=== PATIENT | female | born 1990 | race Hispanic/Latino ===

== ENCOUNTER 2020-10-13 04:08 | Inpatient (IN) | payer MEDICAID, OTHER, SELFPAY ==
[2020-10-13] MEDS ORDERED: Carboprost 250 MCG/ML AMP IM PRN (04:57)
[2020-10-13] MEDS ORDERED: NS / Oxytocin 40 units/1000ml 1,000 ML IV PRN (04:57)
[2020-10-13] MEDS ORDERED: Methylergonovine 0.2 MG/ML VIAL IM PRN (04:57)
[2020-10-13] MEDS ORDERED: Ibuprofen 800 MG TAB PO PRN (04:57)
[2020-10-13] MEDS ORDERED: Misoprostol 200 MCG TAB PR PRN (04:57)
[2020-10-13] MEDS ORDERED: Lidocaine 1% (PF) 30 ML VIAL SC PRN (04:57)
[2020-10-13] MEDS ORDERED: Promethazine HCl 25 MG/ML VIAL IM PRN (04:59)
[2020-10-13] MEDS ORDERED: hydrALAZINE 20 MG/ML VIAL SLOW IVP PRN ×2 (04:59→07:11)
[2020-10-13] MEDS ORDERED: Ondansetron PF 4 MG/2 ML Vial IVP PRN (04:59)
[2020-10-13] MEDS ORDERED: Lactated Ringer's 1,000 ML IV SCH (05:00)
--- NOTE | 2020-10-13 05:00 | PDOC.FPROB ---
FMR OB H&P: HPI - History of Present Illness Chief Complaint: contractions Indentification: 30 yo @ 39.0 wks by 9.0 wk sono History of Present Illness: 30 yo @ 39.0 wks by 9.0 wk sono presents for contractions that started this morning at 0315. Contractions are painful. Denies LOF/VB/VD. Patient reports she was dilated to 6 cm 2 days ago at [facility]. Endorses good movement. Denies any complications during this . GBS negative. No additional complaints. Denies PMHx asthma, HTN. Primary Care Physician: Cheri Rocha @ [facility] FMR OB H&P: Current - Care : 4 Para: [id number] Gestational age: 39.0 Due date: 10/20/2020 Dating Criteria: LMP c/w 9.0 wk sono Course/Complications: TSH 3.5, TPO Ab neg S<D, last EFW 35.6% on 09/12 @ 34.4 weeks - OB Labs Blood type: O RH: positive Antibody Screen: negative HIV: negative RPR: negative HepBsAg: negative Rubella: immune Quad screen: negative Gonorrhea: negative Chlamydia: negative Pap Smear: NILM 02/2020 3 hour GTT: 2 HR: 74/127/130 GBS: negative FMR OB H&P: History - Past Medical History PMH: denies any PMHx - OB History OB History: 3 past SVDs: hx of precipitous deliveries in past pregnancies; hx 2nd deg l aceration in past delivery. - [employer] History [employer] History: pap NILM 02/2020, denies hx STDs - Surgical History Sx History: Denies past surgeries. - Social History Social History: denies etoh/tobacco/drug use - Family History Family History: denies family hx FMR OB H&P: Medications - Current Home Medications: Medication Instructions Recorded Confirmed Type Vit#42/FA Cmb#6 [Prena1 1 tablet PO DAILY 07/12/13 10/13/20 History Chew Tablet] Ibuprofen [Motrin] 800 mg PO Q8HR PRN #30 tab 04/04/17 10/13/20 Rx Allergies/Adverse Reactions: Allergies Allergy/AdvReac Type Severity Reaction Status Date / Time No Known Allergies Allergy Verified 07/12/13 02:20 FMR OB H&P: ROS - Review of Systems General: denies: fever/chills, fatigue Eyes: denies: vision changes ENT: denies: nasal congestion, rhinorrhea, sore throat Cardiovascular: denies: chest pain, palpitation, edema Respiratory: denies: cough, congestion, shortness of breath Gastrointestinal: denies: abdominal pain, nausea, vomiting, diarrhea, constipation Genitourinary (Female): reports: contractions. denies: dysuria, hematuria, poly uria, vaginal discharge, vaginal pain, vaginal bleeding Musculoskeletal: denies: pain Neurologic: denies: numbness, weakness Integumentary: denies: rash Endocrine: denies: polyuria Psychological: denies: depression, anxiety FMR OB H&P: Vital Signs - Heart Tones Baseline: 135 Variability: moderate Acceleration: present Deceleration: absent Category: category 1 [place] contractions every: q5-10 FMR OB H&P: Physical Exam - Physical Exam General: NAD, awake, alert and oriented HEENT: normocephalic and atraumatic, MMM, conjunctiva clear, no scleral icterus, grossly normal vision, grossly normal hearing Neck: supple, no LAD Heart: RRR, normal S1/S2, no murmurs/rubs/gallops, pulses present, no edema General: CTAB, no respiratory distress, no rales/rhonchi, no wheezing Abdomen: soft, gravid, non-tender Musculoskeletal: pulses present Neurological: sensation to pain,touch and proprioception grossly normal, DTR +1, no clonus Skin: no rash, good tugor Lymphatic: no unusual bruising or bleeding Psychiatric: intact recent and remote memory, good judgement and insight, normal mood and affect - Pelvic Exam Vulva: no masses, no lesions, no discharge SVE: Membranes: intact Presentation: vertex FMR OB H&P: Results - Imaging Imaging: cephalic presentation on bedside sono FMR OB H&P: A/P Discussion: Date/Time: 10/13/20 0500 sIUP, active labor - at 39.0 wks by LMP c/w 9.0 wk sono - uncomplicated course - GBS negative - cephalic presentation on sono - SVE and intact on presentation, ctx q5-10 min, cat 1 strip - will AROM for augmentation of labor and proceed with probable This H&P was discussed with Dr. Rodriguez and Dr. Valdivia who agree with the above documentation and plan. Wendy Mcgraw DO, PGY-1 Addendum - Attending - Attending Attestation Date/Time: 10/13/20 1795 I personally evaluated the patient and discussed the management with Dr. Mcgraw I agree with the History, Examination, Assessment and Plan documented above with any addition or exceptions noted below. presented in spontaneous labor. GBS negative. plan to AROM and proceed with delivery.
[2020-10-13 05:08] LABS: Hemoglobin 12.8 g/dL (12.0-16.0); Mean Corpuscular HGB CONC 33.3 g/dL (32.0-36.0); Mean Corpuscular Hemoglobin 32.3 pg (27.0-31.0); Mean Corpuscular Volume 96.8 fL (78.0-98.0); Mean Platelet Volume 9.4 fL (7.4-10.4); Platelet Count 142 thou/uL (130-400); RBC Distribution Width 12.8 % (11.5-14.5); Red Blood Cell (RBC) Count 3.96 mill/uL (4.20-5.40); White Blood Cell (WBC) Count 11.3 thou/uL (4.8-10.8)
[2020-10-13 05:18] VITALS: BMI 25.0
[2020-10-13 06:21] LABS: Syphilis Antibody Nonreactive (Nonreactive); Syphilis Antibody Index 0.03 S/CO (<1.00 Non-Reactive)
[2020-10-13 06:22] LABS: HBSAg Index 0.23 S/CO (0-0.99); Hep B Surf Ag Non-Reactive S/CO (NonReactive)
[2020-10-13] MEDS ORDERED: Milk Of Magnesia 30 ML UDCUP PO PRN (07:11)
[2020-10-13] MEDS ORDERED: Lanolin Ointment 7 GM TUBE TOP PRN (07:11)
[2020-10-13] MEDS ORDERED: diphenhydrAMINE 25 MG CAP PO PRN (07:11)
[2020-10-13] MEDS ORDERED: NS / Oxytocin 40 units/1000ml 1,000 ML IV SCH (07:11)
[2020-10-13] MEDS ORDERED: Preparation H Ointment 28 GM TUBE PR PRN (07:11)
[2020-10-13] MEDS ORDERED: Bisacodyl 10 MG SUPP PR PRN (07:11)
[2020-10-13] MEDS ORDERED: Benzocaine-Menthol 82.5 ML CAN TOP PRN (07:11)
[2020-10-13] MEDS ORDERED: Adacel (T-DAP) 0.5 ML SYRINGE IM ONE (07:11)
--- NOTE | 2020-10-13 08:18 | PDOC.EVN ---
Event Note - Event Note Event Note: I was present for and supervised the delivery.
[2020-10-13] MEDS ORDERED: Ibuprofen 800 MG TAB PO SCH (09:00)
--- NOTE | 2020-10-13 09:18 | PDOC.OPDEL ---
OB Operative/Delivery Note Delivery Dr/Surgeon: Nimisha/Shea Pre-Delivery Diagnosis: active labor Procedure/Post Delivery Dx: spontaneous vaginal delivery Weeks gestation: 39 Anesthesia: none - Findings A Sex: female - 1 min: 8 - 5 min: 9 - Additional Findings/Plan Placenta delivered: spontaneous Repaired Obstetrical Laceration: 1st degree (hemostatic, no repair required) Estimated blood loss: 10 Compilations/Other Findings: Delivering Physician: Nimisha Attending: Shea Procedure: Spontaneous Vaginal Delivery Anesthesia: None QBL: 10 ml Pre-op Diagnosis: 1. Term intrauterine in labor Post-op Diagnosis: 1. Term intrauterine , delivered Indications: A 30 yo @ 39.0 wks by 9.0 wk sono presented in active labor. Delivery Note: This is 30yo F @ 39.0 wks who delivered a viable F infant at 0602. Patient presented in active labor at 9cm, following AROM, patient was complete and after an uneventful antepartum course, a vigorous female was delivered over an intact perineum in the occipitoanterior position. Anterior Shoulder and then remainder of the body delivered. No nuchal cord. The head was held down and mouth and nares were bulb suctioned. Cord clamped after delayed cord clamping and cut and cord blood collected. Placenta delivered intact in the [place] presentation with a 3 vessel cord noted. Fundal massage was performed and the fundus was firm. The cervix and vagina were inspected and a small 1st degree perineal laceration was noted, hemostatic, and not requiring repair. Small anterior cervical polyp was noted, hemostatic. Infant went to nursery in good condition for routine care. Apgars were 8/9 at 1 & 5 minutes, respectively. Patient tolerated delivery well and went to after routine recovery/care. ATTENDING ADDENDUM: I was present for and supervised all critical portions of this delivery. I agree with the above documentation. Post delivery plan: routine recovery
[2020-10-13] MEDS: Prenatal Vitamin 1 TAB PO SCH (09:23)
[2020-10-13] MEDS: Docusate Calcium (SURFAK) 240 MG CAP PO SCH ×2 (09:25→22:47)
[2020-10-13 16:10] LABS: SARS-CoV-2 MS2 Positive; SARS-CoV-2 N Gene Negative; SARS-CoV-2 S Gene Negative; SARS-CoV-2 by NAA Not Detected (NotDetected); SARS-CoV-2 orf1ab Negative
[2020-10-13] MEDS: Ibuprofen 800 MG TAB PO SCH ×2 (16:14→22:47)
[2020-10-14] MEDS: Ibuprofen 800 MG TAB PO SCH (06:27)
--- NOTE | 2020-10-14 07:18 | PDOC.PP ---
Post Progress Note Post Day #: 1 Subjective: Doing very well, no concerns. Tolerating PO. Ambulating, voiding and flatus. Lochia minimal. Pain well-controlled. Denies CP, SOB, n/v, fever/chills. Eager for discharge. PO intake tolerated: yes Flatus: yes Ambulation: yes Vital Signs (12 hours) Temp Pulse Resp BP Pulse Ox 10/14/20 05:00 98.1 F 65 17 102/53 L 10/13/20 20:00 98 10/13/20 19:35 98.1 F 70 18 100/47 L 99 Weight Weight 66.224 kg - Physical Examination General: NAD Cardiovascular: no m/r/g, RRR Respiratory: clear to auscultation bilaterally Abdominal: + bowel sounds, lochia, no distention, appropriately TTP Fundus firm & at: below umbilicus Extremities: negative homans (B) (no edema) Neurological: no gross focal deficits Psychiatric: A&Ox3, normal affect Result Diagrams: 10/13/20 04:55 Additional Labs: Post Labs Hep Bs Antigen Non-Reactive S/CO (NonReactive) 10/13/20 04:55 Blood Type O POSITIVE 10/13/20 04:56 (1) Multiparity Code(s): Z64.1 - PROBLEMS RELATED TO MULTIPARITY Status: Acute (2) Term of female Code(s): Z37.0 - SINGLE LIVE Status: Acute Comment: day #2 s/p Vitals stable. Pt reports minimal lochia. She is tolerating a diet. Passing flatus. She is and bonding well with her baby. She is interested in oral contraceptives after discharge. She has no complaints at this time. Plan is to discharge patient today with follow up at Clinic in 2 weeks. Standard activity precautions given. - Assessment/Plan 30yo s/p @ 0602 on 10/13 to a female infant @ 39wk, now PPD #1 #S/p - Routine care - Ambulating, voiding, flatus, tolerating PO, lochia decreased, pain controlled - QBL 105, VSS - Hemostatic 1st degree lac that did not require repair - GBS negative - Eager for discharge PCP: [facility] - [facility] IVF: SL Diet: Regular VTE: Ambulating Dispo: D/C today pending baby bilirubin/clinical course. Addendum - Attending - Attending Attestation Date/Time: 10/14/20 9515 I personally evaluated the patient and discussed the management with Dr. Rocha. I agree with the History, Examination, Assessment and Plan documented above with any addition or exceptions noted below. d/c home today.
[2020-10-14 08:34] VITALS: BP 94/48; TEMP 99.5
[2020-10-14] MEDS: Prenatal Vitamin 1 TAB PO SCH (09:20)
[2020-10-14] MEDS: Docusate Calcium (SURFAK) 240 MG CAP PO SCH (09:20)
== END 2020-10-14 12:34 | disposition home or self-care (01) | DRG 807 ==
LOC: L&D/OP 04:08 → L&D 04:51 → 3SE 08:31 → 3SW 17:19
PROVIDERS: ADMIT Student in an Organized Health Care Education/Training Program; ATTEND Student in an Organized Health Care Education/Training Program
PROC: 10E0XZZ Delivery of Products of Conception, External Approach (ICD-10-PCS; principal; 2020-10-13)
PROC: 10907ZC Drainage of Amniotic Fluid, Therapeutic from Products of Conception, Via Natural or Artificial Opening (ICD-10-PCS; 2020-10-13)
PROC: 0HQ9XZZ Repair Perineum Skin, External Approach (ICD-10-PCS; 2020-10-13)
DX: O70.0 First degree perineal laceration during delivery (principal); Z37.0 Single live birth; Z3A.39 39 weeks gestation of pregnancy; Z79.51 Long term (current) use of inhaled steroids; Z20.828 Contact with and (suspected) exposure to other viral communicable diseases
CPT/HCPCS: 36415; 85027; 86780; 86850; 86900; 86901; 87340; 87635; 99285; U0003